=== PATIENT | female | born 1940 | race Caucasian/White ===

== ENCOUNTER 2023-04-22 09:30 | Emergency (ER) | payer OTHER, SELFPAY ==
--- NOTE | ~2023-04-22 | XR_ITS ---
XR hip RT 2V w AP pelvis DATE: 04/22/2023 10:38 INDICATION: Right posterior hip pain after ground-level fall yesterday TECHNIQUE: AP pelvis. AP and lateral views of right hip. COMPARISON: None FINDINGS: Status post bilateral total hip arthroplasty. No pelvic fracture or bone destruction. The pubic symphysis and sacroiliac joints are intact. No fracture or dislocation of the right hip is detected. IMPRESSION: Status post bilateral total hip arthroplasty. No pelvic or right hip fracture or dislocation Reviewed, dictated and finalized at [facility]. ROGRAPHIST
[2023-04-22 09:47] VITALS: BP 151/67; PULSE 66; RESP 16; TEMP 36.8; O2SAT 99
--- NOTE | 2023-04-22 10:16 | ED.FALL ---
HPI - Fall General Chief Complaint: Fall Stated Complaint: Lower back pain, pain behind right leg after fall Source: patient Mode of arrival: ambulatory Limitations: no limitations History of Present Illness HPI Narrative: 83-year-old female presented for complaint of right posterior hip pain radiating behind the leg to the knee. Onset yesterday after a fall. Woke this morning feeling stiff and unable to tolerate weight bearing on the right. Pain radiates from tailbone and hip to the leg. Pain 8/10, worse with walking. She states she fell in the yd landed on the right side. Denies LOC or hitting her head. Took paracetamol. Denies numbness, tingling or weakness of the legs. Denies saddle paresthesia or loss of bowel or bladder. Hx bilateral hip replacements. Utilizing walker today. Pt resides in . Related Data Home Medications Medication Instructions Recorded Confirmed bendroflumethiazide 5 mg tablet 2.5 mg PO DAILY 04/22/23 04/22/23 bimatoprost 0.01 % eye drops 1 drp EACH EYE QPM 04/22/23 04/22/23 dorzolamide 22.3 mg-timolol 6.8 1 drp EACH EYE BID 04/22/23 04/22/23 mg/mL eye drops losartan 100 mg tablet 100 mg PO DAILY 04/22/23 04/22/23 sertraline 25 mg tablet 25 mg PO DAILY 04/22/23 04/22/23 Allergies Allergy/AdvReac Type Severity Reaction Status Date / Time codeine Allergy Intermediate Hives Verified 04/22/23 10:14 diclofenac Allergy Intermediate Hives Verified 04/22/23 10:14 Review of Systems Review of Systems: CONSTITUTIONAL: Denies body aches, fever, chills EYES: Denies visual changes CARDIOVASCULAR: Denies chest pain, palpitations, or edema. RESPIRATORY: Denies cough or dyspnea. GASTROINTESTINAL: Denies abdominal pain, nausea, vomiting, or diarrhea. SKIN: Denies rash, itching, or wounds. MUSCULOSKELETAL: reports mid low back pain, right hip pain NEUROLOGIC: Denies headache, numbness, tingling, or weakness. All systems reviewed & are unremarkable except as noted in HPI and below PMFSH Past Medical History Medical History Glaucoma HTN (hypertension) Surgical History Surgical History History of total replacement of both hip joints Social History Social History Smoking packs per day: 0.25 Smoking cigarettes per day: 5.0 Smoking status: Current every day smoker Tobacco type: cigarettes Comments At time of signature, I have reviewed and agree with nursing past medical, surgical, social and family history unless otherwise noted. Please see nursing chart for further information. There is no relevant family history pertinent to the presenting complaint Exam Narrative: GENERAL: Well-appearing, in no acute distress. HEAD: Normocephalic, atraumatic. NECK: Supple. full ROM CHEST: Speaks in full sentences. No respiratory distress. HEART: Regular rate and rhythm. Normal and equal peripheral pulses. MUSC: No vertebral point tenderness from cervical to lumbar spine. Tender to sacrum and tailbone and right posterior hip. BLEs with normal strength and sensation, normal range of motion to right hip, endorses pain with lifting leg anterior or walking movement. No ecchymosis, No open wounds, or obvious deformity; alignment normal, pulse palpable and equal bilaterally, skin warm, dry, pink. Capillary refill less than 3 seconds. Gait moderately steady with walker SKIN: Warm, dry, no rash. NEURO: Alert and oriented x3. Back/Spine/Pelvis: Back/spine/pelvis image: 1. area of reported pain Course Course Emergency Course: Patient is aware of diagnosis, understands and agrees to treatment plan. Anticipatory guidance given. Patient agrees to follow-up as directed and is aware of reasons to seek care at the emergency department. Portions of this record may have been created with voice recognition software Level of Care: Express
[2023-04-22] MEDS: IBUPROFEN 400 MG TABLET 800 MG PO (10:45)
== END 2023-04-22 11:24 | disposition short-term general hospital (02) ==
PROVIDERS: Emergency Provider Nurse Practitioner Family
DX: M25.551 Pain in right hip (principal); I10 Essential (primary) hypertension; F17.210 Nicotine dependence, cigarettes, uncomplicated; Z79.899 Other long term (current) drug therapy
CPT/HCPCS: 73502; 99203; A9270; G0463

== ENCOUNTER 2023-04-22 11:45 | Emergency (ER) | payer OTHER, SELFPAY ==
--- NOTE | ~2023-04-22 | CT_ITS ---
EXAMINATION: CT pelvis wo con DATE: 04/22/2023 12:55 INDICATION: Fall. Hip pain. TECHNIQUE: Computed tomography (CT) of the pelvis was performed without intravenous contrast. Automat ed exposure control and iterative reconstruction technique were employed. Exam dose: 502.00 mGy-cm t otal exam DLP. COMPARISON: 04/18/2023 pelvis and right hip FINDINGS: Bilateral total hip arthroplasty. The hip prosthetic devices create creditability streak artifact, limiting the evaluation. Diffuse osteopenia. There is protrusio at the right total hip arthroplasty. Recommend comparison with any prior available radiographs to determine if this is a chronic stable finding. Otherwise no pelvic or hip fracture or dislocation is detected. There is moderately severe degenerative disc disease at L4-5 with grade 1 anterolisthesis. Degenerati ve changes noted at the apophyseal joints at L4-5 and L5-S1. There is prominent sclerosis at the right side of the L4 vertebral body on the uppermost 2 images, in completely visualized. Osteosclerotic lesion is not excluded. 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 Reviewed, dictated and finalized at [facility] 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
[2023-04-22 11:53] VITALS: BP 142/98; PULSE 83; RESP 19; TEMP 36.6; O2SAT 93
[2023-04-22] MEDS: CYCLOBENZAPRINE HCL 10 MG TABLET PO (12:28)
--- NOTE | 2023-04-22 14:04 | ED.GENADULT ---
HPI - General Adult General Chief complaint: Back Pain/Injury Stated complaint: fall-back pain Time Seen by Provider: 04/22/23 12:01 History of Present Illness HPI narrative: patient is an 83-year-old female who presents ER with pain to the right hip/ buttock. She had a fall yesterday while picking up a fall outside that she had been tossing to a dog. She is able to get back up and walk. She had increased pain today and has been using a walker to steady herself. She went to an urgent care where x-rays were negative but it was recommended she get a CT scan to rule out any additional injury. She has no numbness or tingling to the leg. She has no low back pain. She did not strike her head or lose consciousness. Related Data Allergies Allergy/AdvReac Type Severity Reaction Status Date / Time codeine Allergy Unknown Verified 04/22/23 11:56 diclofenac Allergy Unknown Verified 04/22/23 11:56 Review of Systems Constitutional: Constitutional: Reports no additional constitutional complaints Musculoskeletal: Musculoskeletal: Reports arthralgias, Denies joint swelling and Denies muscle cramps Integumentary/Breasts: Skin/Breast: Reports system reviewed and no additional complaints, except as docu Neurologic: Reports system reviewed and no additional complaints, except as documented PMFSH Past Medical History Medical History (Updated 04/22/23 @ 14:09 by Andrae Garcia MD) Hypertension Surgical History Surgical History (Updated 04/22/23 @ 14:06 by Andrae Garcia MD) History of bilateral total hip arthroplasty Exam Narrative: GENERAL: Well-appearing, well-nourished, and in no acute distress. HEAD: Normocephalic, atraumatic. ENT: Mucous membranes moist. CHEST: Clear to auscultation. No respiratory distress. HEART: Regular rate and rhythm. Normal peripheral pulses. EXTREMITIES: No edema. pain with palpation over the right buttock without bruising. Pain with active range of motion but no pain with passive range of motion. SKIN: Warm, dry, no rash. NEURO: Alert and oriented x3. PSYCH: Normal mood and affect. Course Course Emergency Course: Discussed case with patient and orthopedic surgery. Patient has evidence of bone graft and reports history of having repeat procedure to stabilize her hip several years ago. Protrusion of the arthroplasty is not felt to be acute and it is felt patient is appropriate for discharge home. Will give muscle relaxers and anti-inflammatories for treatment. Vital Signs Vital signs: Vital Signs Temperature 97.8 F 04/22/23 11:53 Pulse Rate 83 04/22/23 11:53 Respiratory Rate 19 04/22/23 11:53 Blood Pressure 142/98 H 04/22/23 11:53 Pulse Oximetry 93 04/22/23 11:53 Oxygen Delivery Room Air 04/22/23 11:53 Temperature 97.8 F 04/22/23 11:53 Pulse Rate 83 04/22/23 11:53 Respiratory Rate 19 04/22/23 11:53 Blood Pressure 142/98 H 04/22/23 11:53 Pulse Oximetry 93 04/22/23 11:53 Oxygen Delivery Room Air 04/22/23 11:53 Medical Decision Making Vital Signs Vital Signs: Vital Signs Temperature 97.8 F 04/22/23 11:53 Pulse Rate 83 04/22/23 11:53 Respiratory Rate 19 04/22/23 11:53 Blood Pressure 142/98 H 04/22/23 11:53 Pulse Oximetry 93 04/22/23 11:53 Oxygen Delivery Room Air 04/22/23 11:53 Temperature 97.8 F 04/22/23 11:53 Pulse Rate 83 04/22/23 11:53 Respiratory Rate 19 04/22/23 11:53 Blood Pressure 142/98 H 04/22/23 11:53 Pulse Oximetry 93 04/22/23 11:53 Oxygen Delivery Room Air 04/22/23 11:53 Imaging Data Radiologist's impression: ITS Impressions Pelvis CT 04/22/23 13:22 IMPRESSION: 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
== END 2023-04-22 14:25 | disposition home or self-care (01) ==
PROVIDERS: Emergency Provider Emergency Medicine
DX: S30.0XXA Contusion of lower back and pelvis, initial encounter (principal); W19.XXXA Unspecified fall, initial encounter
CPT/HCPCS: 72192; 99284; A9270